=== PATIENT | male | born 1945 | race Hispanic/Latino ===

== ENCOUNTER 2019-06-13 07:36 | Outpatient (CLI) | payer OTHER ==
[2019-06-13 07:57] LABS: Hematocrit 43.4 % (35.5-45.6); Hemoglobin 14.9 gm/dl (11.8-15.2); Mean Corpuscular HGB Conc 34 % (32-34); Mean Corpuscular Volume 106 fl (84-94); Red Blood Count 4.08 M/mm3 (3.65-5.03); Red Cell Distribution Width 13.8 % (13.2-15.2)
[2019-06-13 08:09] LABS: INR 1.34 (0.87-1.13)
[2019-06-13 08:10] LABS: Partial Thromboplastin Time 29.8 Sec. (24.2-36.6)
[2019-06-13 09:27] LABS: Platelet Count 97 K/mm3 (140-440)
== END 2019-06-13 07:37 | disposition home or self-care (01) ==
LOC: LAB 07:36
PROVIDERS: ATTEND Surgery
DX: K74.60 Unspecified cirrhosis of liver (principal); C15.9 Malignant neoplasm of esophagus, unspecified
CPT/HCPCS: 36415; 85027; 85610; 85730

== ENCOUNTER 2019-06-13 11:29 | Day surgery (SDC) | payer OTHER ==
--- NOTE | 2019-06-13 12:48 | Anesthesia Day of Surgery ---
Anesthesia Day of Surgery - Day of Surgery Patient Examined: Yes Patient H&P Reviewed: Yes Patient is NPO: Yes
--- NOTE | 2019-06-13 12:48 | Anesthesia Consultation ---
Anesthesia Consult and Med Hx Date of service: 06/13/19 - Airway Anesthetic Teeth Evaluation: Poor ROM Head & Neck: Adequate Mental/Hyoid Distance: Adequate Mallampati Class: Class II Intubation Access Assessment: Good - Pulmonary Exam CTA: Yes - Cardiac Exam Cardiac Exam: RRR - Pre-Operative Health Status ASA Pre-Surgery Classification: ASA3 Proposed Anesthetic Plan: MAC (HX of liver cirrhosis , still drinks alcohol as well as esophageal cancer) - Pulmonary Hx Smoking: Yes (QUIT 40 YRS AGO) Hx Asthma: No COPD: No Hx Sleep Apnea: No - Cardiovascular System Hx Hypertension: Yes - Central Nervous System Hx Seizures: No CVA: No Hx Psychiatric Problems: No - Endocrine Hx Cirrhosis: Yes (LIVER DISEASE) - Other Systems Hx Alcohol Use: Yes (DOES NOT CURRENTLY DRINK) Hx Cancer: No
[2019-06-13] MEDS ORDERED: ZOFRAN IV PRN (12:51)
[2019-06-13] MEDS ORDERED: XYLOCAINE MPF 2% ONE (13:00)
[2019-06-13] MEDS ORDERED: ANCEF/STERILE WATER 2 GM/20 ML IV NR (13:00)
[2019-06-13] MEDS ORDERED: LACTATED RINGERS 1,000 ML IV SCH (13:00)
[2019-06-13] MEDS ORDERED: SUBLIMAZE ONE (14:56)
[2019-06-13] MEDS ORDERED: DIPRIVAN 10 MG/ML IV ONE ×3 (14:57→17:00)
[2019-06-13] MEDS ORDERED: XYLOCAINE 1%/ EPI 1:100,000 INFILTRATI ONE (15:01)
[2019-06-13] MEDS ORDERED: NACL 0.9% 50 ML ONE (15:01)
[2019-06-13] MEDS ORDERED: HEPARIN 10,000 UNITS/10 ML ONE (15:01)
[2019-06-13] MEDS ORDERED: MARCAINE 0.5% INFILTRATI ONE (15:01)
[2019-06-13] MEDS ORDERED: MARCAINE-EPI 0.25%-1:200,000 INFILTRATI ONE (16:01)
[2019-06-13] MEDS ORDERED: MARCAINE-EPI 0.5%-1:200,000 INFILTRATI ONE ×2 (16:02→16:07)
[2019-06-13] MEDS ORDERED: HEPARIN 10,000 UNITS/10 ML IV ONE (16:07)
[2019-06-13] MEDS ORDERED: NACL 0.9% IR ONE (16:07)
--- NOTE | 2019-06-13 17:32 | Post Operative Note ---
Pre-op diagnosis: Esophageal cancer Post-op diagnosis: same Procedure: Yuotd-N-[id number] placement Anesthesia: MAC Surgeon: SACHA SMITH Estimated blood loss: minimal Pathology: none Condition: stable Disposition: PACU
[2019-06-13 18:04] VITALS: BP 118/58
--- NOTE | 2019-06-13 18:37 | Fluoroscopy Report ---
Chest single view INDICATION: Chest pain IMPRESSION: The left-sided port terminates over the mid mediastinum and currently is projecting over the aortic knob versus the mid innominate vein. Ultimately I cannot differentiate between arterial an d venous placement based on this projection. Total fluoroscopy time measures 35 seconds Signer Name: Allen Welch MD Signed: 06/13/2019 6:33 PM Workstation Name: [id number]
--- NOTE | 2019-06-14 09:29 | Post Anesthesia Evaluation ---
- Post Anesthesia Evaluation Patient Participated: Yes Airway Patent: Yes Stable Respiratory Function: Yes Nausea/Vomiting: No Temp > 96.8F: Yes Pain Manageable: Yes Adequeate Hydration: Yes Anesthesia Complications: No Block Receding Appropriately: Not Applicable Patient on Ventilator: No
--- NOTE | 2019-06-20 09:54 | Procedure Note ---
Date of procedure: 06/13/19 Pre-op diagnosis: Esophageal cancer Post-op diagnosis: same Procedure: Wkysm-M-Mhnb placement Description of procedure: Pt was placed supine on the OR table. MAC anesthesia was administered. Bilateral chest, neck and lower face were prepped and draped. Pt was placed in a Trendelenburg position. Left IJ vein was located with the Sono-site and accessed with the introducer needle. Guide wire was passed into the left IJ vein and the introducer needle removed. Fluoroscopy was utilized to reveal the guide wire tip in good position. 9 ml of 0.5% Marcaine with epinephrine was infiltrated into the skin and SQ tissue at the site of the Azjif-N-Klcc pocket and the route of the Qdkwf-B-Sxpq catheter into the neck. A pocket was created in the infraclavicular space and the catheter tunneled from the pocket to the puncture site in the neck. The dilator sheath and tear away catheter were passed over the guide wire and the guide wire removed. The dilator sheath was removed and the catheter passed into the IJ vein via the tear away sheath. The tear away sheath was removed. The catheter was pulled back until the tip was confirmed on fluoroscopy to be in the proximal SVC. The catheter was cut at 22 cm and was attached to the port. The catheter was secured to the port with a tie of 3-0 Prolene. The port was sutured in place with 2 interrupted sutures of 3-0 Vicryl. Skin at the port site was approximated with a running subcuticular suture of 4-0 Monocryl. The Jqsrf-I-Aydf was then accessed percutaneously with free aspiration of blood. The port was then filled with 8 ml of Heparinized saline at a concentration of 100 units of Heparin per milliliter of saline. The port incision and puncture sites were then covered with skin glue. Upright portable CXR in the OR revealed the port to be in good position with the tip within the distal left innominate vein. Pt tolerated the procedure well. He was taken to PACU in stable condition. Anesthesia: MAC Surgeon: SACHA SMITH Estimated blood loss: minimal Pathology: none Condition: stable Disposition: PACU
== END 2019-06-13 11:30 | disposition home or self-care (01) ==
LOC: OR 11:29
PROVIDERS: ATTEND Surgery
DX: C15.9 Malignant neoplasm of esophagus, unspecified (principal); I10 Essential (primary) hypertension; Z79.899 Other long term (current) drug therapy; Z87.891 Personal history of nicotine dependence; Z72.89 Other problems related to lifestyle; Z98.890 Other specified postprocedural states; Z86.2 Personal history of diseases of the blood and blood-forming organs and certain disorders involving the immune mechanism
CPT/HCPCS: 36415; 36561; 77001; 85027; 85610; 85730; C1788; J1644; J2704; J3010; J7120